=== PATIENT | female | born 1950 ===

== ENCOUNTER 2016-12-16 09:46 | Emergency (ER) | payer MEDICARE, BC ==
[2016-12-16] MEDS ORDERED: Tetan/Diph/Pertus SYR(Tdap)* 0.5 ML SYR(BOOSTRIX) use SYR IM ONE (10:34)
[2016-12-16] MEDS ORDERED: Amoxicillin/Clavulanate TAB* 875 MG PO ONE (11:04)
--- NOTE | 2016-12-16 11:15 | UC ---
Bite Injury/Animal HPI - HPI Summary HPI Summary: dog bite from her dog this morning at 8:30 --2 large laceration on right forearm - History of Current Complaint Chief Complaint: UCBiteInjury Stated Complaint: DOG BITE Time Seen by Provider: 12/16/16 10:57 Hx Obtained From: Patient ?: No Severity Currently: Moderate Severity Initially: Moderate Pain Intensity: 4 Pain Scale Used: 0-10 Numeric Onset/Duration: Sudden Onset, Still Present Type of Bite: Pet Has Animal Been Immunized?: Yes Character: Full-Thickness Aggravating Factor(s): Nothing Alleviating Factor(s): Nothing Associated Signs And Symptoms: Positive: Negative Hx of Bite: Provoked by: - playing with frisbee Animal Available for Observation: Yes Animal Control Notified: Yes - Allergies/Home Medications Allergies/Adverse Reactions: Allergies Allergy/AdvReac Type Severity Reaction Status Date / Time No Known Allergies Allergy Verified 12/16/16 10:21 PMH/Surg Hx/FS Hx/Imm Hx - Surgical History Surgical History: Yes Surgery Procedure, Year, and Place: hysterectomy - Social History Alcohol Use: Occasionally Substance Use Type: None Smoking Status (MU): Current Every Day Smoker Review of Systems Constitutional: Negative Skin: Other - 2 -- 7cm dog bites on right forearms Eyes: Negative ENT: Negative Respiratory: Negative Cardiovascular: Negative Gastrointestinal: Negative Genitourinary: Negative Motor: Negative Neurovascular: Negative Musculoskeletal: Negative Neurological: Negative Psychological: Negative All Other Systems Reviewed And Are Negative: Yes Physical Exam Triage Information Reviewed: Yes Appearance: Well-Appearing, No Pain Distress, Well-Nourished Vital Signs: Initial Vital Signs Temp 99.5 F 12/16/16 10:17 Pulse 72 12/16/16 10:17 Resp 16 12/16/16 10:17 BP 161/84 12/16/16 10:17 Pulse Ox 100 12/16/16 10:17 Vital Signs Reviewed: Yes Eye Exam: Normal Eyes: Positive: Conjunctiva Clear ENT Exam: Normal ENT: Positive: Normal ENT inspection, Hearing grossly normal, TMs normal. Negative: Nasal congestion, Nasal drainage, Tonsillar swelling, Tonsillar exudate Dental Exam: Normal Neck exam: Normal Neck: Positive: Supple, Nontender Respiratory Exam: Normal Respiratory: Positive: Chest non-tender, Lungs clear, Normal breath sounds, No respiratory distress, No accessory muscle use Cardiovascular Exam: Normal Cardiovascular: Positive: RRR, No Murmur, Pulses Normal, Brisk Capillary Refill Musculoskeletal Exam: Normal Musculoskeletal: Positive: Strength Intact, ROM Intact, No Edema Neurological Exam: Normal Neurological: Positive: Alert, Muscle Tone Normal Psychological Exam: Normal Skin: Positive: Other - 2 7cm laceration to right distal forearm Procedures - Laceration/Wound Repair 1 Location: upper extremity - right distal Description: Linear Anesthesia: Local Length, Depth and Shape: 7 cm Betadine Prep?: Yes Irrigated w/ Saline (ccs): 250 Laceration/Wound Explored: clean Closure: Single Layer Suture Type: Nylon Number of Sutures: 5 - 5.0 very loose Layer Closure?: No Sterile Dressing Applied?: Yes 2 Location: upper extremity - right upper proximal near anticub Description: Irregular - Y shaped Anesthesia: Local, 1.0%, Lido Length, Depth and Shape: 7 cm total length Betadine Prep?: Yes Irrigated w/ Saline (ccs): 250 Laceration/Wound Explored: clean Closure: Single Layer Suture Type: Nylon Number of Sutures: 6 - 5.0 Layer Closure?: No Sterile Dressing Applied?: Yes Re-Evaluation - Re-Evaluation First Eval Change: Improved - wounds well approximated with loose suturing, n/m/c intact before and after suturing Bite Injury Course/Dx - Course Course Of Treatment: Loose suture closure, dressing augmentin, update tetnus, antibiodic, x-ray (-), nicotine and hypertension education, follow with Ortho - Differential Dx/Diagnosis Differential Diagnosis/HQI/PQRI: Fracture, Joint Space Infection, Laceration, Rabies Exposure, Deep Space Infection Provider Diagnoses: Dog bite with loose closure, up date tetnus, nicotine dependant, hypertension with out dx of high blood bpressure Discharge - Discharge Plan Condition: Stable Disposition: HOME Prescriptions: Amoxicillin/Clavulanate TAB* [Augmentin TAB 875*] 875 mg PO BID #20 tab HYDROcodone/ACETAMIN 5-325 MG* [[place] 5-325 TAB*] 1 tab PO Q6H PRN #5 tab MDD 4 PRN Reason: pain Patient Education Materials: Hydrocodone/Acetaminophen (By mouth), Diphtheria/ Acellular Pertussis/Tetanus Booster Vaccine (By injection), How to Stop Smoking (ED), Animal Bite (ED), Care For Your Stitches (ED), DASH Eating Plan (ED), Hypertension (ED) Referrals: Bibi Murguia MD [Medical Doctor] - 4 Days No Primary Care Phys,NOPCP [Primary Care Provider] - Additional Instructions: Return in 10-14 days for suture remove here or at Dr. Bojorquez office
[2016-12-16] MEDS ORDERED: Lidocaine 1% MPF* 2 ML VIAL INJ ONE (11:51)
[2016-12-16] MEDS ORDERED: Benzoin Compound STICK TOPICAL ONE (11:54)
[2016-12-16] MEDS ORDERED: Benzoin COMPOUND swab* 1 applicator pak TOPICAL ONE (11:54)
[2016-12-16] MEDS ORDERED: Benzoin Compound STICK ONE (11:56)
--- NOTE | 2016-12-16 12:22 | RAD ---
HISTORY: .Dog bite, penetrating trauma right forearm COMPARISONS: None VIEWS: 2, Frontal and lateral views of the right forearm. Evaluation of the distal radius and ulna is limited by metallic jewelry. FINDINGS: BONE DENSITY: Normal. BONES: There is no displaced fracture. 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 ALIGNMENT: There is no dislocation. SOFT TISSUES: There is soft tissue irregularity of the proximal forearm consistent with the history of penetrating trauma OTHER FINDINGS: None. IMPRESSION: NO ACUTE OSSEOUS INJURY. IF SYMPTOMS PERSIST, RECOMMEND REPEAT IMAGING.
[2016-12-16] MEDS ORDERED: HYDROcodone/ACETAMIN 5-325 MG* 1 TAB PO ONE (12:51)
== END 2016-12-16 13:23 | disposition home or self-care (01) ==
LOC: UCEAST 09:46
DX: S51.851A Open bite of right forearm, initial encounter (principal); W54.0XXA Bitten by dog, initial encounter; Y93.9 Activity, unspecified; Y92.9 Unspecified place or not applicable; Y99.9 Unspecified external cause status; Z23 Encounter for immunization; R03.0 Elevated blood-pressure reading, without diagnosis of hypertension; F17.210 Nicotine dependence, cigarettes, uncomplicated
CPT/HCPCS: 12005; 12053; 90471; 90715; 99202; A9270-GY; G0463